=== PATIENT | male | born 1950 | race Caucasian/White ===

== ENCOUNTER 2018-03-22 18:23 | Inpatient (IN) | payer MEDICARE, OTHER ==
[~2018-03-22] VITALS: Ht 180.3 cm; Wt 116.2 kg
[~2018-03-22 18:23] MED LIST: AMINOPHYLLIN200 MG PO; APAP/HYDROCODON1 T46 PO; ASPIRIN81 M1 PO; B-COMPLEX-501 CAP PO; BACLOFEN PO; BACLOFEN20 M1 PO; BACLOFEN20 MG PO; BUMETANIDE1 MG PO; CEPHALEXIN500 M1 PO; CIPRO250 MG PO; CIPROFLOXACIN500 MG PO; COLACE100 MG PO; COLACE100 MG/10 PO; DOCUSATE SODIU100 M2 PO; DOCUSATE100 MG PO; DOXYCYCLINE100 MG PO; DUONEB 3 MG/3 ML3 M1 NEB; DURAGESIC 50 M50 MCG TD; FAMOTIDINE20 M1 PO; FERROUS SULFAT324 M1 PO; FLORASTOR250 MG PO; FUROSEMIDE20 MG PO; GABAPENTIN100 M1 PO; HEPARIN5000 UNIT/ SC; K-Dur 20MEQ20 MEQ PO; KEFLEX500 MG PO; KEPPRA500 MG PO; LIPITOR40 MG PO; LISINOPRIL10 M1 PO; Lac-Hydrin 12%340 GM T; MAG-OX 400400 MG PO; MAGNESIUM OXID400 MG PO; MIRALAX POWDER17 G1 PO; MIRALAX17 GM/DOSE PO; Magnesium Oxid400 MG PO; NEURONTIN100 MG PO; NORCO 325 MG-51 TAB PO; NORCO 5-325 TA1 EACH PO; OMEGA 3 FISH O1 EACH PO; PEPCID20 MG PO; PLAVIX75 MG PO; POTASSIUM CHLO10 MEQ PO; PRIMAXIN 500 M500 MG IV; SUPER B-50 COM1 EAC1 PO; TEFLARO400 MG IV; VITAMIN B1001 TAB PO; VITAMIN D31000 IU PO; VITAMIN D50000 I3 PO; XANAX0.25 MG PO; ZYLOPRIM100 MG PO; [UNRECOGNIZED DRUG - CODE] SC; [UNRECOGNIZED DRUG - OTHER] IV; [UNRECOGNIZED DRUG - OTHER] PO; [UNRECOGNIZED DRUG - OTHER] T
[2018-03-22 18:29] VITALS: BP 168/66
[2018-03-22] MEDS ORDERED: PROSCAR5 M1 PO (19:18)
[2018-03-22] MEDS ORDERED: CARVEDILOL3.125 MG PO (19:19)
[2018-03-22] MEDS ORDERED: FLOMAX0.4 MG PO (19:19)
[2018-03-22 19:21] LABS: BASO % 0.4 % (0.0-1.0); EOS # 0.1 10*3/uL (0.0-0.4); EOS % 1.5 % (1.0-4.0); HEMATOCRIT 35.1 % (42.0-52.0); HEMOGLOBIN 11.6 g/dl (14.0-18.0); LYMPH # 1.4 10*3/uL (1.3-4.4); MEAN CELL VOLUME 94.1 fl (80.0-94.0); MEAN CORPUSCULAR HGB 31.1 pg (27.0-31.0); MEAN PLATELET VOLUME 10.7 fl (9.6-12.3); MONO # 0.6 10*3/uL (0.1-1.0); MONO % 8.5 % (3.0-9.0); NEUT # 5.1 10*3/uL (2.3-7.9); NEUT % 70.1 % (47.0-73.0); PLATELET COUNT AUTOMATED 175 10*3/uL (130-400); RED BLOOD COUNT 3.73 10*6/uL (4.50-5.90); RED CELL DISTRI WIDTH 13.7 % (0-14.5); WHITE BLOOD COUNT 7.3 10*3/uL (4.8-10.8)
[2018-03-22 19:33] LABS: ACT PARTIAL THROMBO TIME 27.2 SECONDS (20.8-31.5); INTERNATIONAL NORM RATIO 1.1 (2.0-3.5)
[2018-03-22 19:35] LABS: BILIRUBIN NEGATIVE (NEGATIVE); BLOOD TRACE-LYSED (NEGATIVE); CLARITY SL CLOUDY (CLEAR); COLOR YELLOW (YELLOW); GLUCOSE NEGATIVE (NEGATIVE); KETONE NEGATIVE (NEGATIVE); LEUKO ESTERASE 3+ (NEGATIVE); NITRITE NEGATIVE (NEGATIVE); PH 5.5 (5.0-9.0); SPECIFIC GRAVITY 1.015 (1.005-1.030); UROBILINOGEN 0.2 E.U./dl (0.2-1.0)
[2018-03-22 19:37] LABS: ALBUMIN 3.5 gm/dl (3.1-4.5); ALKALINE PHOSPHATASE 92 U/L (45-117); BUN 19 mg/dl (7-24); CHLORIDE 105 mmol/L (98-107); POTASSIUM 4.1 mmol/L (3.5-5.1); SGOT/AST 16 IU/L (3-35); SGPT/ALT 15 U/L (12-78); SODIUM 137 mmol/L (136-145); TOTAL PROTEIN 7.7 gm/dL (6.4-8.2)
[2018-03-22 19:43] LABS: WBC 41-50 wbc/hpf (0-5)
[2018-03-22 19:45] LABS: TROPONIN I < 0.015 ng/ml (<0.045)
[2018-03-22 20:55] VITALS: BP 133/51
[2018-03-22 21:05] VITALS: BP 143/73
[2018-03-22 21:25] VITALS: BP 143/73
[2018-03-23] VITALS: BP 140/72
[2018-03-23 06:59] LABS: BASO % 0.5 % (0.0-1.0); EOS # 0.1 10*3/uL (0.0-0.4); EOS % 1.7 % (1.0-4.0); HEMATOCRIT 36.1 % (42.0-52.0); HEMOGLOBIN 11.7 g/dl (14.0-18.0); LYMPH # 1.6 10*3/uL (1.3-4.4); LYMPH % 26.1 % (27.0-41.0); MEAN CELL VOLUME 95.8 fl (80.0-94.0); MEAN CORPUSCULAR HGB CONC 32.4 g/dl (33.0-37.0); MEAN PLATELET VOLUME 10.9 fl (9.6-12.3); MONO # 0.5 10*3/uL (0.1-1.0); MONO % 8.8 % (3.0-9.0); NEUT # 3.7 10*3/uL (2.3-7.9); NEUT % 62.6 % (47.0-73.0); PLATELET COUNT AUTOMATED 176 10*3/uL (130-400); RED BLOOD COUNT 3.77 10*6/uL (4.50-5.90); RED CELL DISTRI WIDTH 13.8 % (0-14.5); WHITE BLOOD COUNT 5.9 10*3/uL (4.8-10.8)
[2018-03-23 07:18] LABS: BUN 17 mg/dl (7-24); CHLORIDE 106 mmol/L (98-107); CHOLESTEROL 102 mg/dL (<200); CREATININE 1.32 mg/dL (0.70-1.30); FREE T4 1.41 ng/dl (0.76-1.46); HDL CHOLESTEROL 30 mg/dl (40-60); LDL CHOLESTEROL 57 mg/dL (9-159); PHOSPHOROUS 2.6 mg/dL (2.5-4.9); POTASSIUM 4.2 mmol/L (3.5-5.1); SODIUM 139 mmol/L (136-145); TRIGLYCERIDES 75 mg/dl (<150); VLDL CHOLESTEROL 15 mg/dL (6-40)
[2018-03-23 07:37] LABS: INTERNATIONAL NORM RATIO 1.1 (2.0-3.5)
[2018-03-23 08:00] VITALS: BP 189/67
[2018-03-23 08:05] LABS: VITAMIN D, 25-HYDROXY 35.1 ng/mL (30-100)
[2018-03-23 08:50] VITALS: BP 168/52
[2018-03-23 12:00] VITALS: BP 155/60
[2018-03-23 16:00] VITALS: BP 114/50
[2018-03-23 20:00] VITALS: BP 107/43
[2018-03-24] VITALS: BP 108/48
[2018-03-24 06:15] LABS: BUN 13 mg/dl (7-24); CHLORIDE 110 mmol/L (98-107); CREATININE 1.19 mg/dL (0.70-1.30); POTASSIUM 4.1 mmol/L (3.5-5.1); SODIUM 140 mmol/L (136-145)
[2018-03-24 08:00] VITALS: BP 150/53
[2018-03-24 12:00] VITALS: BP 145/86
[2018-03-24 16:00] VITALS: BP 113/41
[2018-03-24 20:00] VITALS: BP 129/51
[2018-03-25] VITALS: BP 133/78
[2018-03-25 08:00] VITALS: BP 158/65
[2018-03-25 12:00] VITALS: BP 136/54
[2018-03-25] MEDS ORDERED: OMNICEF300 MG PO (13:38)
[2018-03-25] MEDS ORDERED: NORCO 5-325 TA1 EACH PO (14:53)
== END 2018-03-25 17:15 | disposition other institution (70) | DRG 698 ==
LOC: ED 18:23 → 4E 19:58 → EDHOLD 19:58 → 4E 20:46
PROVIDERS: Internal Medicine; Physician Assistant; Student in an Organized Health Care Education/Training Program
DX: T83.511A Infection and inflammatory reaction due to indwelling urethral catheter, initial encounter (principal); N17.0 Acute kidney failure with tubular necrosis; L89.151 Pressure ulcer of sacral region, stage 1; E44.0 Moderate protein-calorie malnutrition; J18.1 Lobar pneumonia, unspecified organism; E87.8 Other disorders of electrolyte and fluid balance, not elsewhere classified; I69.951 Hemiplegia and hemiparesis following unspecified cerebrovascular disease affecting right dominant side; R47.01 Aphasia; I73.9 Peripheral vascular disease, unspecified; I10 Essential (primary) hypertension; G89.4 Chronic pain syndrome; R73.9 Hyperglycemia, unspecified; D53.9 Nutritional anemia, unspecified; E78.5 Hyperlipidemia, unspecified; M1A.9XX0 Chronic gout, unspecified, without tophus (tophi); K21.9 Gastro-esophageal reflux disease without esophagitis; N40.0 Benign prostatic hyperplasia without lower urinary tract symptoms; R56.9 Unspecified convulsions; Y84.6 Urinary catheterization as the cause of abnormal reaction of the patient, or of later complication, without mention of misadventure at the time of the procedure; N39.0 Urinary tract infection, site not specified; E83.41 Hypermagnesemia; Z88.1 Allergy status to other antibiotic agents; Z88.8 Allergy status to other drugs, medicaments and biological substances; Z88.2 Allergy status to sulfonamides; Z79.82 Long term (current) use of aspirin; Z79.899 Other long term (current) drug therapy; Z68.35 Body mass index [BMI] 35.0-35.9, adult; Y92.89 Other specified places as the place of occurrence of the external cause